=== PATIENT | female | born 1980 | race Caucasian/White ===

== ENCOUNTER 2022-02-09 20:43 | Emergency (ER) | payer OTHER ==
[~2022-02-09 20:43] MED LIST: BACTRIM DS TAB1 EACH PO; CHLORTHALIDONE25 MG PO; CLINDAMYCIN HC300 MG PO; FLEXERIL 10 MG10 MG PO; IBUPROFEN600 MG PO; NASONEX17 GM; NEURONTIN 300300 MG PO; PHENERGAN 25 MG25 M1 PO; PRINIVIL10 MG PO; RANITIDINE HCL300 M1 PO
[2022-02-09 21:53] LABS: HEMOGLOBIN 16.4 gm/dl (12.3-15.3); RED BLOOD COUNT 4.88 M/UL (4.00-5.10); WHITE BLOOD COUNT 9.4 K/UL (4.5-11.0)
[2022-02-09 22:37] LABS: BUN/CREATININE RATIO 14 (0-10)
== END 2022-02-10 00:49 | disposition left against medical advice (07) ==
LOC: ER1 20:43
PROVIDERS: Physician Assistant Medical
DX: R10.30 Lower abdominal pain, unspecified (principal); R11.0 Nausea; R19.7 Diarrhea, unspecified; R30.0 Dysuria; F17.210 Nicotine dependence, cigarettes, uncomplicated; Z87.442 Personal history of urinary calculi; Z90.710 Acquired absence of both cervix and uterus; Z90.49 Acquired absence of other specified parts of digestive tract
CPT/HCPCS: 80053; 81001; 85025; 99283